=== PATIENT | female | born 1985 | race Hispanic/Latino ===

== ENCOUNTER 2023-05-11 05:47 | Emergency (ER) | payer OTHER, SELFPAY ==
[2023-05-11 06:02] LABS: Actual Bicarbonate (HCO3v) 6.7 mEq/L (22-28); Base Excess -20.9 mEq/L (-2 - +2); Calcium, Ionized (venous) 1.15 mmol/L (1.16-1.32); Chloride (VBG) 90 mmol/L (98-106); Critical Notified By: CP.PH; Hematocrit-VBG 41 % (36.0-47.0); Hemoglobin (Hb) 13.8 g/dL (11.7-15.5); Potassium (VBG) 4.92 mmol/L (3.70-5.30); Puncture Site Other Site; Sodium 133.1 mmol/L (133-146); pH (venous) 7.117 (7.32-7.43)
[2023-05-11 06:06] LABS: #Basophils 0.1 10x3/uL (0.0-0.2); #Eosinphils 0.1 10x3/uL (0.0-0.5); #Monocytes 1.2 10x3/uL (0.0-1.1); #Neutrophils 19.4 10x3/uL (1.5-8.4); %Basophils 0.6 % (0.0-2.0); %Eosinophils 0.4 % (0.0-6.0); %Lymphocytes 5.8 % (18.0-47.0); %Monocytes 5.3 % (0.0-10.0); %Neutrophils 87.1 % (40.0-75.0); Hematocrit 40.9 % (34.9-44.5); Hemoglobin 12.9 g/dL (12.0-15.5); Mean Corpuscular HGB CONC 31.5 g/dL (32.0-36.0); Mean Corpuscular Hemoglobin 29.2 pg (27.0-33.0); Mean Corpuscular Volume 92.5 fl (81.6-98.3); Mean Platelet Volume 10.2 fl (7.4-10.4); Platelet Count 472 10x3/uL (150-450); RBC Distribution Width 12.6 % (11.5-14.5); Red Blood Cell (RBC) Count 4.42 10x6/uL (3.90-5.03); White Blood Cell (WBC) Count 22.3 10x3/uL (3.5-10.5)
[2023-05-11 06:27] LABS: ALT (SGPT) 26 U/L (8-55); AST (SGOT) 39 U/L (5-34); Albumin 4.6 g/dL (3.5-5.0); Alcohol Less than 10.0 mg/dL (Less than 10); Alkaline Phosphatase 299 U/L (40-110); BUN (Urea Nitrogen) 18 mg/dL (7.0-18.7); Bilirubin, Total 0.3 mg/dL (0.2-1.2); Calc. Creatinine Clearance 0 mL/min (70-130); Calcium 9.7 mg/dL (7.8-10.44); Chloride 87 mmol/L (98-107); Estimated GFR 41; Globulin 5.3 g/dL (2.4-3.5); Potassium 4.9 mmol/L (3.5-5.1); Protein, Total 9.9 g/dL (6.0-8.3); Sodium 126 mmol/L (136-145)
[2023-05-11 06:31] LABS: Acetaminophen Less than 10 mcg/mL (10.0-30.0); Alcohol Less than 10.0 mg/dL (Less than 10); Magnesium 2.4 mg/dL (1.6-2.6); Salicylate Less than 8.0 mg/dL (15.0-30.0)
[2023-05-11 06:32] LABS: Carbon Dioxide Less than 8 mmol/L (22-29); Glucose 638 mg/dL (70-105)
[2023-05-11] MEDS ORDERED: Cefepime 2 GM VIAL ONE (06:45)
[2023-05-11] MEDS ORDERED: INSULIN REGULAR IN 0.9 % NACL 100 UNITS in Premix Bag 1 BAG IVPB SCH (07:00)
[2023-05-11] MEDS ORDERED: INSULIN REGULAR IN 0.9 % NACL 100 UNITS/100 ML BAG ONE (07:25)
[2023-05-11 08:36] LABS: BHCG - Serum Negative (NEGATIVE); Pregs Control Background? CLEAR/WHITE (CLR/WHITE); Pregs Control Bar Appear? YES (CONTROL BAR)
[2023-05-11 08:53] LABS: Amphetamine Not Detected (NotDetected); Barbiturates Screen Not Detected (NotDetected); Benzodiazepine Screen Not Detected (NotDetected); Cocaine Metabolite Screen Not Detected (NotDetected); Methadone Not Detected (NotDetected); Methamphetamine Not Detected (NotDetected); Opiate Screen Not Detected (NotDetected); Oxycodone Screen Not Detected (NotDetected); Phencyclidine (PCP) Not Detected (NotDetected); THC/Cannabinoid Screen Detected (NotDetected); Tricyclic Screen Not Detected (NotDetected)
[2023-05-11 09:42] LABS: Lactic Acid 0.9 mmol/L (0.5-2.2)
== END 2023-05-11 09:17 | disposition short-term general hospital (02) ==
LOC: EDBD 05:47 → CSHERS 05:47
DX: E11.10 Type 2 diabetes mellitus with ketoacidosis without coma (principal)
CPT/HCPCS: 36415; 36416; 80053; 80306; 80307; 82010; 82805; 83605; 83735; 83930; 84443; 84703; 85025; 87040; 93005; 93010; 96365; 96366; 96367; J0692; J1815

== ENCOUNTER 2023-06-06 11:07 | Inpatient (IN) | payer OTHER ==
[2023-06-06 11:58] LABS: #Basophils 0.1 10x3/uL (0.0-0.2); #Eosinphils 0.4 10x3/uL (0.0-0.5); #Monocytes 1.3 10x3/uL (0.0-1.1); #Neutrophils 9.8 10x3/uL (1.5-8.4); %Basophils 0.7 % (0.0-2.0); %Eosinophils 2.6 % (0.0-6.0); %Lymphocytes 14.3 % (18.0-47.0); %Monocytes 9.5 % (0.0-10.0); %Neutrophils 72.6 % (40.0-75.0); Hematocrit 30.4 % (34.9-44.5); Hemoglobin 9.7 g/dL (12.0-15.5); Mean Corpuscular HGB CONC 31.9 g/dL (32.0-36.0); Mean Corpuscular Hemoglobin 27.8 pg (27.0-33.0); Mean Corpuscular Volume 87.1 fl (81.6-98.3); Mean Platelet Volume 9.7 fl (7.4-10.4); Platelet Count 383 10x3/uL (150-450); RBC Distribution Width 13.6 % (11.5-14.5); Red Blood Cell (RBC) Count 3.49 10x6/uL (3.90-5.03); White Blood Cell (WBC) Count 13.5 10x3/uL (3.5-10.5)
[2023-06-06 11:58] LABS: Bilirubin Neg (Negative); Blood, Urine 50 (Negative); Glucose, Urine (Dipstick) 50 mg/dL (Negative); Ketone, Urine Negative (Negative); Leukocyte 500 (Negative); Nitrite Positive (Negative); Protein, Urine (Dipstick) 30 mg/dl (Neg-Trace); Urobilinogen Normal mg/dL (Less than 2)
[2023-06-06 11:59] LABS: Clarity Clear (Clear)
[2023-06-06 12:04] LABS: Bacteria/HPF 3+ HPF (None Seen); CAUTI Indications for Culture Pelvic or flank pain; Squamous Epithelial 0-3 HPF (0-3); WBC/HPF Greater Than 50 HPF (0-3)
[2023-06-06 12:05] LABS: Urine Culture Reflex Yes Yes
[2023-06-06 12:07] LABS: ALT (SGPT) 17 U/L (8-55); AST (SGOT) 21 U/L (5-34); Albumin 3.7 g/dL (3.5-5.0); Alkaline Phosphatase 194 U/L (40-110); Anion Gap 13 mmol/L (10-20); BUN (Urea Nitrogen) 9 mg/dL (7.0-18.7); Bilirubin, Total 0.2 mg/dL (0.2-1.2); Calc. Creatinine Clearance 0 mL/min (70-130); Calcium 8.9 mg/dL (7.8-10.44); Carbon Dioxide 25 mmol/L (22-29); Chloride 101 mmol/L (98-107); Estimated GFR 107; Globulin 4.1 g/dL (2.4-3.5); Glucose 117 mg/dL (70-105); Lipase 4 U/L (8-78); Potassium 3.3 mmol/L (3.5-5.1); Protein, Total 7.8 g/dL (6.0-8.3); Sodium 136 mmol/L (136-145)
[2023-06-06 12:11] LABS: BHCG - Serum Negative (NEGATIVE); Pregs Control Background? CLEAR/WHITE (CLR/WHITE); Pregs Control Bar Appear? YES (CONTROL BAR)
[2023-06-06] MEDS ORDERED: Ketorolac Tromethamine 30 MG/ML VIAL ONE (12:15)
[2023-06-06] MEDS ORDERED: Cefepime 2 GM VIAL ONE (12:16)
[2023-06-06] MEDS ORDERED: Iopamidol 300 61% 100 ML VIAL FS ONE (14:41)
[2023-06-06] MEDS ORDERED: Ondansetron ODT 4 MG TAB PO PRN (16:48)
[2023-06-06] MEDS ORDERED: Acetaminophen 325 MG TAB PO PRN (16:48)
[2023-06-06] MEDS ORDERED: Acetaminophen 650 MG Suppository PR PRN (16:48)
[2023-06-06] MEDS ORDERED: Ondansetron PF 4 MG/2 ML Vial IVP PRN (16:48)
[2023-06-06] MEDS ORDERED: Dextrose 50% Abboject 50 ML SYRINGE SLOW IVP PRN (16:50)
[2023-06-06] MEDS ORDERED: Insulin Regular 300 UNITS/3 ML VIAL SC PRN (16:50)
[2023-06-06] MEDS ORDERED: Dextrose 5% in Water 1,000 ML IV PRN (16:50)
[2023-06-06] MEDS ORDERED: Glucagon 1 MG/ML KIT IM PRN (16:50)
[2023-06-06] MEDS ORDERED: Naloxone HCl 0.4 mg/ml Vial IVP PRN (16:57)
[2023-06-06] MEDS ORDERED: fentaNYL 50 mcg/mL 1 mL Vial SLOW IVP PRN (16:57)
[2023-06-06] MEDS ORDERED: Electrolyte Replacement Protocol 1 EACH FS SCH (17:00)
[2023-06-06] MEDS ORDERED: Potassium Chloride 20 MEQ TAB PO SCH (18:00)
[2023-06-06] MEDS: Ketorolac Tromethamine 30 MG/ML VIAL IVP SCH ×2 (18:22→23:48)
[2023-06-06] MEDS: NS 0.9% w/ 20 MEQ KCL 1,000 ML/1,000 ML BAG IV SCH (18:22)
[2023-06-06] MEDS: Pancrelipase DR 12,000 1 CAP PO SCH (18:26)
[2023-06-06 18:40] VITALS: BMI 15.3
[2023-06-06] MEDS ORDERED: FLU VACC QS2023-24(6MOS UP)/PF 60 MCG/0.5 ML SYRINGE IM ONE (19:30)
[2023-06-06] MEDS ORDERED: Vancomycin HCl 750 MG in Sodium Chloride 0.9% 250 ML 250 ML IVPB SCH (20:00)
[2023-06-06] MEDS: levETIRAcetam 500 MG TAB PO SCH (20:15)
[2023-06-06] MEDS: HYDROcodone/Acetaminophen 10/325 mg Tablet PO PRN (20:15)
[2023-06-06] MEDS: OXcarbazepine 300 MG TAB PO SCH (20:45)
[2023-06-06] MEDS: Insulin Regular 300 UNITS/3 ML VIAL SC PRN (20:45)
[2023-06-06] MEDS: Lantus 1000 UNITS/10 ML VIAL SC SCH (20:46)
[2023-06-06] MEDS ORDERED: levETIRAcetam in NS 1,500 MG in Premix Bag 1 BAG IVPB SCH (21:00)
[2023-06-06] MEDS: Cefepime 2 GM in Sodium Chloride 0.9% 100 ML IVPB SCH (22:29)
[2023-06-07 05:20] LABS: #Basophils 0.1 10x3/uL (0.0-0.2); #Eosinphils 0.5 10x3/uL (0.0-0.5); #Neutrophils 5.2 10x3/uL (1.5-8.4); %Basophils 0.6 % (0.0-2.0); %Eosinophils 6.3 % (0.0-6.0); %Lymphocytes 21.8 % (18.0-47.0); %Monocytes 11.5 % (0.0-10.0); %Neutrophils 59.5 % (40.0-75.0); Hematocrit 25.4 % (34.9-44.5); Mean Corpuscular HGB CONC 31.5 g/dL (32.0-36.0); Mean Corpuscular Hemoglobin 28.1 pg (27.0-33.0); Mean Corpuscular Volume 89.1 fl (81.6-98.3); Mean Platelet Volume 9.9 fl (7.4-10.4); Platelet Count 286 10x3/uL (150-450); RBC Distribution Width 13.7 % (11.5-14.5); Red Blood Cell (RBC) Count 2.85 10x6/uL (3.90-5.03); White Blood Cell (WBC) Count 8.6 10x3/uL (3.5-10.5)
[2023-06-07 05:39] LABS: Anion Gap 10 mmol/L (10-20); BUN (Urea Nitrogen) 10 mg/dL (7.0-18.7); Calc. Creatinine Clearance 92 mL/min (70-130); Calcium 7.7 mg/dL (7.8-10.44); Carbon Dioxide 22 mmol/L (22-29); Chloride 112 mmol/L (98-107); Estimated GFR 124; Glucose 102 mg/dL (70-105); Sodium 140 mmol/L (136-145)
[2023-06-07] MEDS: Ketorolac Tromethamine 30 MG/ML VIAL IVP SCH ×2 (05:49→12:15)
[2023-06-07] MEDS: NS 0.9% w/ 20 MEQ KCL 1,000 ML/1,000 ML BAG IV SCH ×2 (05:50→13:18)
[2023-06-07] MEDS: OXcarbazepine 300 MG TAB PO SCH ×2 (09:29→21:15)
[2023-06-07] MEDS: Pancrelipase DR 12,000 1 CAP PO SCH ×3 (09:29→18:04)
[2023-06-07] MEDS: Cefepime 2 GM in Sodium Chloride 0.9% 100 ML IVPB SCH ×2 (09:29→21:16)
[2023-06-07] MEDS: levETIRAcetam 500 MG TAB PO SCH ×2 (09:29→21:14)
[2023-06-07] MEDS: Lantus 1000 UNITS/10 ML VIAL SC SCH ×2 (09:30→21:15)
[2023-06-07] MEDS: Vancomycin HCl 500 MG in Sodium Chloride 0.9% 100 ML IVPB SCH (15:59)
[2023-06-07] MEDS: HYDROcodone/Acetaminophen 10/325 mg Tablet PO PRN (21:12)
[2023-06-07] MEDS: Insulin Regular 300 UNITS/3 ML VIAL SC PRN (21:15)
[2023-06-08] MEDS: HYDROcodone/Acetaminophen 10/325 mg Tablet PO PRN ×2 (01:27→09:23)
[2023-06-08 05:28] LABS: #Eosinphils 0.4 10x3/uL (0.0-0.5); #Monocytes 0.9 10x3/uL (0.0-1.1); #Neutrophils 4.5 10x3/uL (1.5-8.4); %Basophils 0.5 % (0.0-2.0); %Eosinophils 5.5 % (0.0-6.0); %Lymphocytes 26.9 % (18.0-47.0); %Monocytes 11.1 % (0.0-10.0); %Neutrophils 55.6 % (40.0-75.0); Hematocrit 26.4 % (34.9-44.5); Hemoglobin 8.3 g/dL (12.0-15.5); Mean Corpuscular HGB CONC 31.4 g/dL (32.0-36.0); Mean Corpuscular Hemoglobin 27.9 pg (27.0-33.0); Mean Corpuscular Volume 88.6 fl (81.6-98.3); Mean Platelet Volume 9.9 fl (7.4-10.4); Platelet Count 325 10x3/uL (150-450); RBC Distribution Width 13.5 % (11.5-14.5); Red Blood Cell (RBC) Count 2.98 10x6/uL (3.90-5.03)
[2023-06-08 05:40] LABS: Anion Gap 9 mmol/L (10-20); BUN (Urea Nitrogen) 7 mg/dL (7.0-18.7); Calc. Creatinine Clearance 97 mL/min (70-130); Calcium 8.3 mg/dL (7.8-10.44); Carbon Dioxide 25 mmol/L (22-29); Chloride 105 mmol/L (98-107); Estimated GFR 126; Glucose 71 mg/dL (70-105); Potassium 3.7 mmol/L (3.5-5.1); Sodium 135 mmol/L (136-145)
[2023-06-08] MEDS: NS 0.9% w/ 20 MEQ KCL 1,000 ML/1,000 ML BAG IV SCH ×2 (05:44→09:24)
[2023-06-08] MEDS ORDERED: Midodrine HCl 5 MG TAB PO SCH ×3 (06:00→15:00)
[2023-06-08] MEDS ORDERED: Atorvastatin Calcium 20 MG TAB PO SCH (09:00)
[2023-06-08] MEDS ORDERED: COLESEVELAM HCL PO SCH (09:00)
[2023-06-08] MEDS ORDERED: Dicyclomine 20 MG TAB PO PRN (09:04)
[2023-06-08 09:07] LABS: Vancomycin, Trough 1.5 ug/mL
[2023-06-08] MEDS: Pancrelipase DR 12,000 1 CAP PO SCH ×2 (09:12→12:23)
[2023-06-08] MEDS: Cefepime 2 GM in Sodium Chloride 0.9% 100 ML IVPB SCH (09:12)
[2023-06-08] MEDS: Lantus 1000 UNITS/10 ML VIAL SC SCH (09:12)
[2023-06-08] MEDS: levETIRAcetam 500 MG TAB PO SCH (09:12)
[2023-06-08] MEDS: Vancomycin HCl 500 MG in Sodium Chloride 0.9% 100 ML IVPB SCH (09:13)
[2023-06-08] MEDS ORDERED: Cholestyramine/Aspartame 4 gm Packet PO SCH (10:00)
[2023-06-08] MEDS: OXcarbazepine 300 MG TAB PO SCH (10:11)
[2023-06-08 13:06] VITALS: BP 103/64; TEMP 97.5
[2023-06-08] MEDS ORDERED: Acyclovir 200 mg Capsule PO SCH (14:00)
[2023-06-08] MEDS ORDERED: Acyclovir 400 mg Tablet PO SCH (14:00)
[2023-06-08] MEDS ORDERED: Vancomycin HCl 500 MG in Sodium Chloride 0.9% 100 ML IVPB SCH (17:00)
[2023-06-08] MEDS ORDERED: Famotidine 20 MG TAB PO SCH (21:00)
[2023-06-08] MEDS ORDERED: Mirtazapine 15 MG TAB PO SCH (21:00)
[2023-06-08] MEDS ORDERED: OXcarbazepine 300 MG TAB PO SCH (21:00)
[2023-06-09] MEDS ORDERED: Multivitamin W/ Minerals 1 TAB PO SCH (09:00)
[2023-06-09] MEDS ORDERED: MULTIVITAMIN PO SCH (09:00)
[2023-06-09] MEDS ORDERED: FLUoxetine HCl 20 MG CAP PO SCH (09:00)
== END 2023-06-08 13:41 | disposition home or self-care (01) | DRG 871 ==
LOC: CSHERS 11:07 → CSHTELE 14:44
PROVIDERS: ADMIT Hospitalist; ATTEND Internal Medicine
DX: A41.9 Sepsis, unspecified organism (principal); E43 Unspecified severe protein-calorie malnutrition; R64 Cachexia; K86.1 Other chronic pancreatitis; E87.1 Hypo-osmolality and hyponatremia; N10 Acute pyelonephritis; Z68.1 Body mass index [BMI] 19.9 or less, adult; E10.9 Type 1 diabetes mellitus without complications; R59.0 Localized enlarged lymph nodes; G40.909 Epilepsy, unspecified, not intractable, without status epilepticus; Z98.890 Other specified postprocedural states; Z88.6 Allergy status to analgesic agent; Z79.899 Other long term (current) drug therapy; Z79.4 Long term (current) use of insulin; Z83.3 Family history of diabetes mellitus
CPT/HCPCS: 36415; 36416; 74177; 80048; 80053; 80202; 81001; 83605; 83690; 84703; 85025; 87040; 87077; 87086; 87186; 90471; 90686; G0008; J0692; J1815; J1885; J3370; J3480; J3490; J7050; Q9967

== ENCOUNTER 2025-08-20 13:20 | Emergency (ER) | payer OTHER | END 2025-08-20 14:27 | disposition left against medical advice (07) | LOC: CSHERS 13:20 | DX: Z53.21 Procedure and treatment not carried out due to patient leaving prior to being seen by health care provider (principal) ==